=== PATIENT | male | born 1965 | race American Indian/Alaskan Native ===

== ENCOUNTER 2017-01-05 08:22 | Day surgery (SDC) | payer BC ==
[2017-01-05 08:53] VITALS: BMI 31.4
[2017-01-05] MEDS ORDERED: Propofol 10 mg/ml Inj (20 ML) ONE (10:54)
[2017-01-05 12:17] VITALS: O2SAT 100
[2017-01-05 12:21] VITALS: BP 116/69; PULSE 76; RESP 20; TEMP 976
== END 2017-01-05 12:15 | disposition home or self-care (01) ==
LOC: C.ENDO 08:22
PROVIDERS: ATTEND Internal Medicine Gastroenterology
DX: Z12.11 Encounter for screening for malignant neoplasm of colon (principal); K64.1 Second degree hemorrhoids
CPT/HCPCS: 45378; 82948; J2704

== ENCOUNTER 2019-01-03 12:14 | Emergency (ER) | payer BC ==
[2019-01-03 12:15] VITALS: BMI 31.4
[2019-01-03 13:17] VITALS: PULSE 79; RESP 18; TEMP 97; O2SAT 98
--- NOTE | 2019-01-03 13:46 | C.PDOC ---
History Of Present Illness 53 year old male presents to ED requesting refill for his hypertension and diabetes medication. Patient ran out of his medication in September 2018. Patient sees outside PMD. Patient couldn't follow up with his PMD due to his insurance. Patient denies polyuria, polydipsia, and headache. Time Seen by Provider: 01/03/19 13:16 Chief Complaint (Nursing): High Blood Pressure History Per: Patient History/Exam Limitations: no limitations Onset/Duration Of Symptoms: Other (requesting refill for his hypertension and diabetes medication) Severity: None Past Medical History Reviewed: Historical Data, Nursing Documentation, Vital Signs Vital Signs: Last Vital Signs Temp 97 F L 01/03/19 13:17 Pulse 79 01/03/19 13:17 Resp 18 01/03/19 13:17 BP 156/88 H 01/03/19 13:17 Pulse Ox 98 01/03/19 13:17 - Medical History PMH: HTN Denies: Chronic Kidney Disease Surgical History: No Surg Hx Family History: States: Unknown Family Hx - Social History Hx Alcohol Use: No Hx Substance Use: No - Immunization History Hx Tetanus Toxoid Vaccination: No Hx Influenza Vaccination: No Hx Pneumococcal Vaccination: No Review Of Systems Constitutional: Positive for: Other (increased thirst). Negative for: Fever, Chills, Weakness Genitourinary: Positive for: Other (polyuria) Neurological: Negative for: Weakness, Numbness, Headache, Dizziness Physical Exam - Physical Exam Appears: Well, Non-toxic, No Acute Distress Skin: Normal Color, Warm, Dry Head: Atraumatic, Normacephalic Neck: Normal ROM, Supple Chest: Symmetrical, No Deformity Cardiovascular: Rhythm Regular, No Murmur Respiratory: No Accessory Muscle Use, No Rales, No Rhonchi, No Wheezing Gastrointestinal/Abdominal: Soft, No Tenderness Neurological/Psych: Oriented x3, Normal Speech, Normal Cognition ED Course And Treatment O2 Sat by Pulse Oximetry: 98 (in RA) Progress Note: EKG ordered for patient. Patient given Norvasc, amaryl, and glucophage. Re-evaluation. Patient feels better. Discussed results and plan with patient who expresses understanding. All questions answered and there is agreement with the plan to discharge home with instructions. Patient stable for discharge. Return if symptoms persist or worsen. Medical Decision Making Medical Decision Making: lost to f/u with meds since 09/18 last meds noted: norvasc 5 mg QD Valsartan 80 QD Janumet/Metformin BID Pravastatin 20 QHS Glimepride 4 mg BID Linzess 290 mg daily restart meds, first dose in ED opt f/u in Clinic. Disposition Doctor Will See Patient In The: Office Counseled Patient/Family Regarding: Studies Performed, Diagnosis - Disposition Referrals: [facility] [Outside] [employer] [facility] [place] [Outside] [facility] [Outside] Disposition: HOME/ ROUTINE Disposition Time: 13:49 Condition: GOOD Additional Instructions: restart your meds meds NOT restarted: Sitaglipgin 50 mg BID Pravasatatin 20 QHS Linzess 290 mg daily follow-up in the outpatient [facility] for blood tests monitoring and med refills do NOT let your meds run out!! Prescriptions: amLODIPine [Norvasc] 10 mg PO DAILY #2 tab amLODIPine [Norvasc] 5 mg PO DAILY #30 tab Glimepiride [amaRYL] 4 mg PO BID #60 tab MetFORMIN [glucoPHAGE] 1,000 mg PO BID #60 tab Metoprolol Succinate XL [Toprol XL] 50 mg PO DAILY #30 tab SITagliptin [Januvia] 100 mg PO DAILY #30 tab Valsartan 80 mg PO DAILY #30 tablet Instructions: Where to Get Help Paying for Your Prescriptions Forms: [employer] [place] (Kiswahili) - Clinical Impression Clinical Impression: Medicine refill - Scribe Statement The provider has reviewed the documentation as recorded by the Scribe (Christine Edi) All medical record entries made by the Scribe were at my direction and personally dictated by me. I have reviewed the chart and agree that the record accurately reflects my personal performance of the history, physical exam, medical decision making, and the department course for this patient. I have also personally directed, reviewed, and agree with the discharge instructions and disposition.
[2019-01-03 14:10] VITALS: BP 165/90
--- NOTE | 2019-01-06 19:40 | CARD ---
APPROVED REPORT Date of service: 01/03/2019 EKG Measurement Heart [id number] <Conclusion> Normal sinus rhythm Normal ECG
== END 2019-01-03 14:23 | disposition home or self-care (01) ==
LOC: C.ER 12:14
DX: Z76.0 Encounter for issue of repeat prescription (principal)